=== PATIENT | female | born 1990 | race Asian ===

== ENCOUNTER 2017-08-02 16:50 | Emergency (ER) | payer SELFPAY ==
--- NOTE | 2017-08-02 16:50 | NUR ---
1611: PT ARRIVED ASKING FOR TDAP SHOT. RN EMBEDDED NADINE MADE AWARE. 1640: SPOKE WITH PT. PT STATES "MY SISTER IS HAVING A BABY, AND SHE'S MAKING EVERYONE GET THE TDAP AND FLU SHOT BEFORE SEEING THE BABY."; TDAP SHOT NOT WORK RELATED. ER DIRECTOR AND NURSE CREDIT PORTFOLIO ADVISOR MADE AWARE; ADVISED PT TO CHECK IN FOR TDAP SHOT.
--- NOTE | 2017-08-02 16:58 | NUR ---
PT CALLED NO ANSWER IN ER LOBBY.
== END 2017-08-02 16:58 | disposition left against medical advice (07) ==
LOC: MED 16:50
DX: Z53.21 Procedure and treatment not carried out due to patient leaving prior to being seen by health care provider (principal)